=== PATIENT | female | born 1965 | race Asian ===

== ENCOUNTER → 2017-01-01 | Outpatient (CLI) | payer BC ==
[2017-01-01 10:23] LABS: MAGNESIUM 2.1 mg/dL (1.80-2.40)
[2017-01-01 10:40] LABS: VITAMIN B12 LEVEL 553 pg/mL (211-911)
== END | disposition home or self-care (01) ==
LOC: LABPV 08:43
PROVIDERS: ATTEND Psychiatry & Neurology Neurology
DX: G64 Other disorders of peripheral nervous system (principal)
CPT/HCPCS: 82607; 82746; 83036; 83735; 85651; 86038